=== PATIENT | male | born 1970 | race Caucasian/White ===

== ENCOUNTER 2024-03-11 15:36 | Outpatient (CLI) | payer OTHER, SELFPAY ==
--- NOTE | ~2024-03-11 | XR_ITS ---
EXAMINATION: XR chest 2V 03/11/2024 16:21 INDICATION: Fatigue. Murmur. PROCEDURE: 2 view chest COMPARISON: No prior studies for comparison. FINDINGS: The lungs are clear. The cardiomediastinal silhouette is within normal limits. There are no pleural effusions. There is no pneumothorax suspected. IMPRESSION: 1: NO ACUTE CARDIOPULMONARY DISEASE. Reviewed, dictated and finalized at location B.
--- NOTE | ~2024-03-11 | XR_ITS ---
EXAM: XR hand LT min 3V DATE: 03/11/2024 16:21 HISTORY: LEFT HAND PAIN, NKI . COMPARISON: None available. FINDINGS: Normal mineralization. No fracture or dislocation. No lytic or blastic lesion. Joint space s are maintained. No erosion or periosteal change. Soft tissues within normal limits. IMPRESSION: Unremarkable left hand radiograph findings. Reviewed, dictated and finalized at location K.
--- NOTE | ~2024-03-11 | XR_ITS ---
XR hip LT min 2V 03/11/2024 16:21 Indication: Left hip pain Procedure: 2 views left hip Comparison: No prior studies for comparison. Findings: No fracture, luxation or dislocation. No significant soft tissue abnormality. No foreign shweta dies. Impression: 1: No significant bone or joint abnormality. Reviewed, dictated and finalized at location B. Impression: 1: No significant bone or joint abnormality.
--- NOTE | 2024-03-11 16:03 | ECG_ITS ---
Test Date: 2024-03-11 16:23:01 Measurements Intervals Dustin Rate: 78 P: -8 PA: 169 QRS: 82 QRSD: 114 T: 37 QT: 373 QTc: 427 Interpretive Statements SINUS RHYTHM No previous ECG available for comparison Electronically Signed On 03-12-2024 10:32:05 CDT by Rodney Mooney M.D.
== END 2024-03-11 15:37 | disposition home or self-care (01) ==
PROVIDERS: PCP Internal Medicine; Visit Provider Internal Medicine
DX: I10 Essential (primary) hypertension (principal); E11.9 Type 2 diabetes mellitus without complications; R01.1 Cardiac murmur, unspecified; M79.642 Pain in left hand; M25.552 Pain in left hip; R53.83 Other fatigue
CPT/HCPCS: 71046; 73130; 73502; 93005

== ENCOUNTER 2024-04-07 15:24 | Outpatient (CLI) | payer OTHER, SELFPAY ==
--- NOTE | 2024-04-07 15:29 | ECHO_ITS ---
Patient Info Name: Sundeep Bruce Age: 53 years : 1970 Gender: Male Ht: 67 in Wt: 200 lbs BSA: 2.10 m2 HR: 75 bpm BP: 140 / 87 mmHg Heart Rhythm: Sinus Rhythm Technical Quality: Good Exam Date: 04/07/2024 3:27 PM Exam Location: [facility], [place] Patient Status: Outpatient Admit Date: 04/07/2024 Staff Ordering Physician: Stew Ma MD Foam Rubber Fabricator: Neema Flores RDCS Attending Provider: Stew Ma MD Exam Type: CA echo doppler color flow Study Info Indications - systolic murmur Complete two-dimensional, color flow and Doppler transthoracic echocardiogram is performed. Summary 1. Complete two-dimensional, color flow and Doppler transthoracic echocardiogram is performed. 2. Left ventricular chamber dimension is normal. 3. Left ventricular systolic function is normal, estimated at 60-65%. 4. The left ventricular diastolic function is normal. 5. There is moderate aortic valve sclerosis. 6. There is mild aortic valve stenosis with a peak velocity of 220 cm/s, mean gradient of 11 mmHg, and aortic valve area of 1.8 cm2. 7. There is trace tricuspid valve regurgitation. 8. No pulmonary hypertension, estimated pulmonary arterial systolic pressure is 25 mmHg. Left Ventricle Tissue doppler E/e' was not performed. Left ventricular chamber dimension is normal. Left ventricular systolic function is normal, estimated at 60-65%. The left ventricular diastolic function is normal. Right Ventricle Right ventricular systolic function is normal and with normal TAPSE 3.2 cm. Right ventricular chamber dimension is normal. Left Atria Left atrial chamber dimension is normal. Right Atria Right atrial chamber dimension is normal. Aortic Valve The aortic valve is trileaflet. There is moderate aortic valve sclerosis. There is mild aortic valve stenosis with a peak velocity of 220 cm/s, mean gradient of 11 mmHg, and aortic valve area of 1.8 cm2. There is no aortic valve regurgitation. Pulmonic Valve There is no pulmonic regurgitation. Mitral Valve There is no mitral valve stenosis. There is no mitral valve regurgitation. Tricuspid Valve There is trace tricuspid valve regurgitation. No pulmonary hypertension, estimated pulmonary arterial systolic pressure is 25 mmHg. Pericardium/Pleural There is no pericardial effusion. Inferior Vena Cava Normal inferior vena cava with >50% collapse upon inspiration consistent with normal right atrial pressure, 5 mmHg. Aorta The aortic root size at the sinus of Valsalva is normal. Left Ventricular Outflow Tract Name Value Normal LVOT 2D LVOT Diameter 1.9 cm LVOT Doppler LVOT Peak Velocity 138 cm/s LVOT Peak Gradient 8 mmHg LVOT Mean Gradient 5 mmHg LVOT VTI 30 cm LVOT VTI/AV VTI Ratio 0.6 LVOT Stroke Volume 87 ml Pulmonic Valve Name Value Normal PV Doppler
== END 2024-04-07 15:25 | disposition home or self-care (01) ==
LOC: CHSIMG 15:25
PROVIDERS: PCP Internal Medicine; Visit Provider Internal Medicine
DX: I10 Essential (primary) hypertension (principal); E11.9 Type 2 diabetes mellitus without complications; R01.1 Cardiac murmur, unspecified; R53.83 Other fatigue; M25.542 Pain in joints of left hand; M25.552 Pain in left hip; I35.0 Nonrheumatic aortic (valve) stenosis
CPT/HCPCS: 93306

== ENCOUNTER 2024-07-28 08:29 | Outpatient (CLI) | payer OTHER, SELFPAY ==
--- NOTE | ~2024-07-28 | MR_ITS ---
EXAMINATION: MR hip LT wo con DATE: 07/28/2024 09:26 INDICATION: Left hip pain. TECHNIQUE: Magnetic resonance imaging (MRI) of the left hip was performed without intravenous contras t. COMPARISON: Left hip radiographs 03/11/2024 FINDINGS: Bones/cartilage: Alignment is normal. No fracture. There is severe lower lumbar spondylosis. The femoral head/neck mor phologies are normal. Small maefr-at-hrmu images of left hip demonstrate normal cartilage. Labrum: The left acetabular labrum is intact. Fluid: There is no hip joint effusion. There is mild bilateral trochanter bursitis. Soft tissues: There is mild tendinopathy of the left hamstring origin. The left iliopsoas tendon is normal. There i s mild left gluteus minimus and gluteus medius tendinopathy. There is a right inguinal hernia contain ing fat. IMPRESSION: 1. No specific etiology for the patient's symptoms. Reviewed, dictated and finalized at location A. OGRAMMETRIC ENGINEER
== END 2024-07-28 08:30 | disposition home or self-care (01) ==
LOC: CHSIMG 08:36
PROVIDERS: PCP Internal Medicine; Visit Provider Internal Medicine
DX: M25.552 Pain in left hip (principal)
CPT/HCPCS: 73721

== ENCOUNTER 2025-04-04 12:51 | Outpatient (CLI) | payer OTHER, SELFPAY ==
--- NOTE | 2025-04-04 12:56 | ECHO_ITS ---
Patient Info Name: Sundeep Bruce Age: 54 years : 1970 Gender: Male Ht: 67 in Wt: 195 lbs BSA: 2.07 m2 HR: 80 bpm BP: 146 / 83 mmHg Heart Rhythm: Sinus Rhythm Technical Quality: Good Exam Date: 04/04/2025 12:57 PM Patient Status: O Admit Date: 04/04/2025 Exam Type: CA echo doppler color flow Complete two-dimensional, color flow and Doppler transthoracic echocardiogram is performed. Services Account Manager: Rachel Faye Attending Provider: Iftikhar Arellano DO Summary 1. Complete two-dimensional, color flow and Doppler transthoracic echocardiogram is performed. 2. Left ventricular chamber dimension is normal. 3. Left ventricular systolic function is normal, estimated at 65-70. 4. The left ventricular diastolic function is normal. 5. E/e' 8 is minimally elevated. 6. There is moderate aortic valve sclerosis. 7. There is mild aortic valve stenosis with a peak velocity of 226 cm/s, mean gradient of 11 mmHg, and aortic valve area of 1.6 cm2. 8. There is trace tricuspid valve regurgitation. 9. No pulmonary hypertension, estimated pulmonary arterial systolic pressure is 23 mmHg. Left Ventricle E/e' 8 is minimally elevated. Left ventricular chamber dimension is normal. Left ventricular systolic function is normal, estimated at 65-70. The left ventricular diastolic function is normal. Right Ventricle Right ventricular chamber dimension is normal. Right ventricular systolic function is normal. Left Atria Left atrial chamber dimension is normal. Right Atria Right atrial chamber dimension is normal. Aortic Valve The aortic valve is trileaflet. There is moderate aortic valve sclerosis. There is mild aortic valve stenosis with a peak velocity of 226 cm/s, mean gradient of 11 mmHg, and aortic valve area of 1.6 cm2. There is no aortic valve regurgitation. Pulmonic Valve There is no pulmonic regurgitation. Mitral Valve There is no mitral valve stenosis. There is no mitral valve regurgitation. Tricuspid Valve There is trace tricuspid valve regurgitation. No pulmonary hypertension, estimated pulmonary arterial systolic pressure is 23 mmHg. Pericardium/Pleural There is no pericardial effusion. Inferior Vena Cava Normal inferior vena cava with >50% collapse upon inspiration consistent with normal right atrial pressure, 5 mmHg. Aorta The aortic root size at the sinus of Valsalva is normal. Left Ventricular Outflow Tract Name Value Normal LVOT 2D LVOT Diameter 1.9 cm LVOT Doppler LVOT Peak Velocity 129 cm/s LVOT Peak Gradient 7 mmHg LVOT Mean Gradient 3 mmHg LVOT VTI 23 cm LVOT VTI/AV VTI Ratio 0.5 LVOT Stroke Volume 64 ml LVOT CO 5.0 l/min LVOT CI 2.4 l/min/m2 Pulmonic Valve Name Value Normal RVOT Doppler RVOT Peak Velocity 54 cm/s RVOT Peak Gradient 1 mmHg PV Doppler PV Peak Velocity 109 cm/s PV Peak Gradient 5 mmHg Mitral Valve Name Value Normal MV Diastolic Function MV E Peak Velocity 91 cm/s MV A Peak Velocity 83 cm/s MV E/A 1.1 MV Decel Time (PW) 165 ms MV Annular TDI MV E/e' (Septal) 9.8 MV E/e' (Lateral) 7.4 MV E/e' (Average) 8.6 Tricuspid Valve Name Value Normal TV Regurgitation Doppler TR Peak Velocity 212 cm/s TR Peak Gradient 18 mmHg Estimated PAP/RSVP RA Pressure 5 mmHg <=5 PA Systolic Pressure 23 mmHg <36 RV Systolic Pressure 23 mmHg <36 TV Annular TDI TV Lateral Macie s' Velocity 13.4 cm/s >=9.5 Aorta Name Value Normal Ascending Aorta Ao Root Diameter (MM) 3.6 cm Ao Root Diam Index (MM) 1.7 cm/m2 Aortic Valve Name Value Normal AV Doppler AV Peak Velocity 226 cm/s AV Peak Gradient 20 mmHg AV Mean Gradient 11 mmHg AV VTI 41 cm AV Area (Cont Eq VTI) 1.6 cm2 >=3.0 AV Area (Cont Eq Joe) 1.6 cm2 AV DI (Joe) 0.57 AV Regurgitation 2D LVOT Area 2.8 cm2 Ventricles Name Value Normal LV Dimensions 2D/MM IVS Diastolic Thickness (2D) 1.0 cm 0.6-1.0 LVID Diastole (2D) 4.4 cm 4.2-5.8 LVIW Diastolic Thickness (2D) 0.9 cm 0.6-1.0 LVID Systole (2D) 2.4 cm 2.5-4.0 LVOT Diameter 1.9 cm LV Mass (2D Cubed) 137.31 g 88.00-224.00 LV Mass Index (2D Cubed) 66 g/m2 49-115 Relative Wall Thickness (2D) 0.41 <=0.42 LV Fractional Shortening/Ejection Fraction 2D/MM LV Fractional Shortening (2D) 44 % 25-43 LV EF (2D Teichholz) 76 % LV Diastolic Volume (4C MOD) 113 ml LV EF (4C MOD) 71 % LV Diastolic Volume (2C MOD) 92 ml LV EF (2C MOD) 61 % LV Diastolic Volume (BP MOD) 103 ml 62-150 LV Diastolic Volume Index (BP MOD) 50 ml/m2 34-74 LV Systolic Volume (BP MOD) 35 ml 21-61 LV Systolic Volume Index (BP MOD) 17 ml/m2 11-31 LV EF (BP MOD) 66 % 52-72 LV Diastolic Length (4C) 8.5 cm LV Systolic Length (4C) 6.9 cm LV Stroke Volume (4C MOD) 80 ml Atria Name Value Normal LA Dimensions LA Dimension (MM) 4.0 cm 3.0-4.0 LA Volume (4C A-L) 51 ml LA Volume (BP A-L) 54 ml RA Dimensions RA Systolic Major [place] Length (4C) 5.4 cm 2.1-2.7 RA Area (4C) 13.9 cm2 <=18.0 Report Signatures
--- OUTSIDE RECORDS SUMMARY | 2025-04-04 14:25 | XMS_ITS | Patient Health Record ---
Author Organization [facility] Billing Info Address [address] [place] [id number] Care Team Providers Care Coal Picker Name Role Phone Roland STERLING, Anatoly Primary Care Provider Unavailabl e Allergies Allergen (clinical drug ingredient) Drug/Non Drug Allergy documented on EMR Reaction Allergy Type Onset Date Status Vicodin swollen face,heart beat started beating fast Drug Allergy Active Reason For Referral No Information Medications Medication SIG (Take, Route, Frequency, Duration) Notes Start Date End Date Status Fenofibrate Micronized 134 MG 1 capsule with a meal Orally Once a day Active Metformin HCl 1000 MG 1 tablet with meal s Orally Twice a day Active Pantoprazole Sodium 40 MG 1 tablet Orall y Once a day Active Aspirin 81 MG 1 tablet Orally Once a day 11/24/2013 Active Hydrochlorothiazide 25 MG 1 tablet Orall y Once a day for htn 11/24/2013 Active Ibuprofen 800 MG 1 tablet Orally Three times a day prn pain 11/24/2013 Not-Taking Baclofen 10 mg 1 po tid prn muscle spasm 11/24/2013 Active Blood Glucose Monitor System w/Device tid top qd for diabetes 11/24/2013 Active Glimepiride 4 MG 1 tablet with breakfast or the first main meal of the day Orally Once a day Active Glucophage XR 500 MG 1 tablet with evening meal Orally Once a day for diabetes 11/24/2013 Active Lisinopril 40 MG 1 tablet Orally Once a day for htn Active Victoza 18 MG/3ML Subcutaneous Active Amlodipine Besylate 10 MG 1 tablet Orall y Once a day Active Pravachol 20 MG 1 tablet Orally Once a day for high cholesterol 11/24/2013 Active Social History Tobacco Use: Social History Observation Description Date Details (start date - stop date) Never Smoker NA - NA Tobacco Status: Question Answer Notes Patient is a never smoker Problems Problem Type SNOMED Code ICD Code Onset Dates Problem Status W/U Status Risk Notes Problem [id number] Type 2 diabetes mellitus with hyperglycemia (E11.65) Active confirmed Problem 11287586 Type 2 diabetes mellitus with unspecified complications (E11.8) Active confirmed Problem 186653424 Obesity (278.00) Active confirmed Problem 78764806 Hyperlipidemia (272.4) Active confirmed Problem 20057141 HTN (hypertensio n) (401.9) Active confirmed Problem 14079461 Diabetes (250.00) Active confirmed Problem 09362795 Essential hypertension (I10) Active confirmed Problem 433869367 Dyslipidemia (E78.5) Active confirmed Problem 362893514 BMI 33.0-33.9,adult (Z68.33) Active confirmed Plan Of Treatment No Information Insurance Providers Payer Name Payer Address Payer Phone Subscriber Number Group Number Insured Name Patient Relationship to Insured Coverage Start Date Coverage End Date [facility] [address] [address] [place], [place] [id number] [phone] [id number] Jennifer Bruce Spouse - patient is the spouse of the insured 3 Medical (General) History Medical History History ICD Code htn hyperlipidemia kidney stones sseveral times , last 2009, Dxd with CT in the ER at [facility] in . 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 1978 T&A 1974 vasectomy 1990 Hospitalization History Reason Date(Month/Year) surgery chest pain pneumonia
== END 2025-04-04 12:52 | disposition home or self-care (01) ==
LOC: CHSIMG 12:53
PROVIDERS: PCP Internal Medicine; Visit Provider Internal Medicine Cardiovascular Disease
DX: I35.0 Nonrheumatic aortic (valve) stenosis (principal); I35.8 Other nonrheumatic aortic valve disorders
CPT/HCPCS: 93306